=== PATIENT | female | born 1965 | race Caucasian/White ===

== ENCOUNTER 2017-04-18 20:55 | Emergency (ER) | payer SELFPAY ==
[~2017-04-18] VITALS: Ht 154.9 cm; Wt 56.2 kg
[2017-04-18 21:10] VITALS: Ht 154.9 cm; Wt 56.2 kg
[2017-04-19 00:15] VITALS: BP 116/62
== END 2017-04-19 00:15 | disposition home or self-care (01) ==
LOC: ED 20:55
DX: S09.90XA Unspecified injury of head, initial encounter (principal); X58.XXXA Exposure to other specified factors, initial encounter; Y93.89 Activity, other specified; Y92.89 Other specified places as the place of occurrence of the external cause; Y99.8 Other external cause status
CPT/HCPCS: J1885